=== PATIENT | female | born 1995 | race Caucasian/White ===

== ENCOUNTER 2018-11-30 18:47 | Emergency (ER) | payer OTHER ==
[~2018-11-30] VITALS: Ht 162.6 cm; Wt 63.5 kg
[2018-11-30 18:59] VITALS: BP 120/84
--- NOTE | 2018-11-30 21:30 | NUR ---
CALLED PT'S NAME THREE TIMES, NO REPONSE IN WAITING ROOM.
== END 2018-11-30 21:30 | disposition left against medical advice (07) ==
LOC: ER 18:59
DX: R51 Headache (principal); F20.9 Schizophrenia, unspecified; Z53.21 Procedure and treatment not carried out due to patient leaving prior to being seen by health care provider
CPT/HCPCS: A4606; Z7610